=== PATIENT | male | born 1980 | race African-American/Black ===

== ENCOUNTER 2024-01-27 12:33 | Emergency (ER) | payer MEDICAID ==
[~2024-01-27] VITALS: Ht 175.3 cm; Wt 77.9 kg
[2024-01-27] MEDS: TETanus/Pertussis (Acell)/Diphther VAC/PF (Tdap-Adult) 0.5ml syringe IMVAC ONE (14:05)
[2024-01-27 14:31] VITALS: BP 135/70; PULSE 77; RESP 18; TEMP 97.9; O2SAT 97
== END 2024-01-27 14:34 | disposition home or self-care (01) ==
LOC: ER 12:34
DX: S61.012A Laceration without foreign body of left thumb without damage to nail, initial encounter (principal); X58.XXXA Exposure to other specified factors, initial encounter; Y93.89 Activity, other specified; Y92.89 Other specified places as the place of occurrence of the external cause; Y99.8 Other external cause status
CPT/HCPCS: 90715; 99282